=== PATIENT | female | born 1980 ===

== ENCOUNTER 2025-05-24 09:00 | Day surgery (SDC) | payer OTHER ==
[2025-05-24] MEDS ORDERED: NALOXONE HCL 0.4 MG/ML AMPUL IV STA (12:38)
[2025-05-24] MEDS ORDERED: FLUMAZENIL 0.5 MG/5 ML ML IV STA (12:38)
[2025-05-24] MEDS ORDERED: fentaNYL CITRATE 50 MCG/ML AMPUL IV PUSH ONE (12:45)
[2025-05-24] MEDS ORDERED: MIDAZOLAM HCL 2 MG/2 ML VIAL IV ONE (12:45)
[2025-05-24] MEDS ORDERED: ONDANSETRON HCL 2 MG/ML VIAL IV ONE (12:45)
[2025-05-24] MEDS ORDERED: DIPHENHYDRAMINE HCL 50 MG/ML VIAL 1ML IV ONE (12:45)
== END 2025-05-24 14:15 | disposition home or self-care (01) ==
LOC: CIR.AMB 09:00
PROVIDERS: ATTEND Colon & Rectal Surgery
DX: D12.5 Benign neoplasm of sigmoid colon (principal); K62.5 Hemorrhage of anus and rectum; K63.5 Polyp of colon; K57.30 Diverticulosis of large intestine without perforation or abscess without bleeding